=== PATIENT | female | born 1930 | race Caucasian/White ===

== ENCOUNTER 2017-07-17 11:02 | Emergency (ER) | payer MEDICARE, OTHER ==
[~2017-07-17] VITALS: Ht 160 cm; Wt 65.5 kg
[~2017-07-17 11:02] MED LIST: ASPI-973 PO; CALC500T PO; CLON0.1T PO; DOCU-41 PO; HYDR25TA4 PO; LIDO700A10 TP; LOPE1LIQ9 PO; LORA0.5T PO; MORP15TA PO; PANT40TA3 PO; PSYL1PAC10 PO
[2017-07-17 11:05] VITALS: BP 215/108; PULSE 83; RESP 18; O2SAT 98
--- NOTE | 2017-07-17 11:46 | ED.REPORT ---
HPI-General Illness Date of Service Jul 17, 2017 ED Provider: Hemal Winn MD Pt is an 87 year old female with a history of HTN, A-fib, and chronic UTI who presents to the ED for elevated blood pressure onset prior to arrival. The pt reports that she was referred to the ED by Dr. Roth, master planner, for her elevated blood pressure. She c/o dizziness and headache (new). She denies chest pain, SOB, nausea, vision change, lower extremity swelling, and vomiting. Pt reports intermittent sharp chest pain, but she denies current chest-related symptoms. The pt took Lorazepam at 10:00 today without relief. She states that she went to see her , who stays at a jail, resulting in her stress due to his change in mental status. Nursing Notes Stated Complaint: POSSIBLE ELEVATED BLOOD PRESSURE/SENT BY Chief Complaint: Dysrhythmia/Cardiac Nursing Notes Reviewed: Yes Allergies: Coded Allergies: duloxetine (Verified Allergy, Severe, "throat swelling", 07/17/17) felodipine (Verified Allergy, Severe, NAUSEA, 07/17/17) influenza virus vaccine, specific (Verified Allergy, Severe, "guillone barre", 07/17/17) lisinopril (Verified Allergy, Severe, angioedema, 07/17/17) ropinirole (Verified Allergy, Severe, "memory problems, visual hallucinations", 07/17/17) temazepam (Verified Allergy, Severe, "memory problems", 07/17/17) nitrofurantoin (Verified Allergy, Intermediate, "nausea", 07/17/17) Sulfa (Sulfonamide Antibiotics) (Verified Allergy, Unknown, 07/17/17) amlodipine besylate (Verified Adverse Reaction, Severe, Nausea, 07/17/17) norvasc caused nausea and "throat burning" cefuroxime (Unverified Adverse Reaction, Unknown, Diarrhea, 07/17/17) Scheduled Aspirin (Aspirin) 81 Mg Tablet.dr 81 MG PO DAILY Calcium Gluconate (Calcium Gluconate) 45 Mg Tablet 45 MG PO DAILY Clonidine (Clonidine) 0.1 Mg Tablet 0.2 MG PO TID Hydrochlorothiazide (Hydrochlorothiazide) 25 Mg Tablet 25 MG PO DAILY Lidocaine (Lidoderm) 700 Mg Adh..patch 1 PATCH TP UD Pantoprazole DR (Pantoprazole DR) 40 Mg Tablet.dr 40 MG PO DAILY Scheduled PRN Docusate Sodium (Colace) 100 Mg Capsule 50 MG PO DAILY PRN PRN For Constipation Lorazepam (Lorazepam) 0.5 Mg Tablet 0.25-0.5 MG PO TID PRN PRN For Anxiety Morphine Sulfate (Morphine Sulfate) 15 Mg Tablet 7.5-15 MG PO Q3-4H PRN PRN For Pain Miscellaneous Medications Loperamide Liquid (Imodium A-D Liquid) 1 Mg/7.5 Ml Liquid 1 MG PO Psyllium Seed (with Sugar) (Metamucil Packet) 1 Each Packet 1 EACH PO General Time Seen by MD: 11:46 Chief Complaint Other (Elevated blood pressure) Hx Obtained From: Patient Arrived By: Walk-in Sudden in Onset?: No Onset Occurred: Just prior to arrival Symptom Duration: Since onset Severity: Current: No pain currently Severity: Maximum: No pain Recent Healthcare: Recent doctor visit Similar Sx Previous: Yes Past Medical History Past Medical History Notes: PCP - Dr. Julee Alarcon Past Medical History Cataracts Diverticulitis Reports: Hypertension Reports: Atrial fibrillation, Depression, Urinary tract infection (chronic) Past Surgical History Right ankle Reports: Appendectomy, Cataract surgery Smoking History Former Smoker Social History Her lives in a separate Retirement, and he is demented. Alcohol Use: "Social" Drug Use: Denies drug use Other Social History: Good social support, , Lives in jail Ambulatory Status Independent Review of Systems + elevated blood pressure Full Review of Systems Respiratory: Denies: Shortness of breath Cardiovascular: Denies: Chest pain GI: Denies: Nausea, Vomiting Neurologic: Reports: Dizziness, Headache, Denies: Vision change Complete sys rev & neg: except as marked. Physical Exam Vital Signs Vital Signs Date Time Temp Pulse Resp B/P Pulse Ox O2 Delivery O2 Flow Rate FiO2 07/17/17 11:05 36.8 83 18 215/108 98 Room Air Initial VS: Reviewed Head / Eyes: Atraumatic, Normocephalic Neck: Supple, Full range of motion Respiratory: Breath sounds normal, Clear to auscultation, No respiratory distress Abdomen / GI: Soft, Non-tender Extremities: Vascular intact, Neuro intact Skin: Warm, Dry, No cyanosis Neurologic: Alert, Oriented, Nonfocal Psychiatric: Mood/affect normal, Behavior normal General/Constitutional: Awake, Alert Cardiovascular: Heart rate NL, Regular rhythm, Heart sounds NL Re-Eval/Medical Decision Med Decision/Clinical Course The blood pressure in the room when I checked it was 220/90. She has a mild headache but otherwise is asymptomatic and has a normal exam. I talked to Dr. Alarcon who suggested hydrochlorothiazide as an additional medication but the patient is reluctant to use this given her severe incontinence problem. We will use atenolol 25mg daily and follow up next week. Source of Hx: Old records Time of Eval: 12:02 Re-Evaluation/Progress Note: Informed pt of plan to speak with her PCP. All questions addressed. Time of Eval: 12:10 Re-Evaluation/Progress Note: Pt rechecked. Informed pt of plan for discharge. Pt understands and agrees with plan for discharge. F/U instructions and RTER warnings given. All questions addressed. Consultation : Referral / Consult Name: Mirtha Alarcon MD Consulted With: Primary care physician Call Returned at: 12:04 Rocket Engine Tester: Agrees with eval, Agrees with plan Note: Consulted with pt's PCP. Discussed pt's case. Recommends f/u in 1 week and adding HCTZ. Counseled Regarding: Diagnosis, Need for follow-up, When/why to return to ED Discharge & Departure Primary Impression: Hypertension Hypertension type: essential hypertension Qualified Code: I10 - Essential ( primary) hypertension Disposition: Home Discharge Condition All VS Reviewed: Yes Condition: Stable Patient Instructions: Hypertension in the Older Adult (ED) Additional Instructions: Take all your regular medication. Add on atenolol 25 mg daily. Call your primary care provider today for a follow up appointment in a week. Return to the Emergency Department for any new or concerning symptoms such as severe unrelenting headache, vision disturbance, weakness numbness or tingling, or chest pain that lasts for more than 10 minutes. Referrals: Mirtha Alarcon MD Attestation Portions of this note were transcribed by Bita Reeder. I, Dr. Winn personally performed the history, physical exam and medical decision-making; I reviewed and confirmed the accuracy of the information in the transcribed note. Signed by: Katina Ruiz, 07/17/17. copies to: Mirtha Alarcon MD, Kirk H MD Jul 17, 2017 11:46 Bita Kessler Jul 17, 2017 11:54
[2017-07-17] MEDS ORDERED: ATEN25TA PO (12:20)
[2017-07-17 13:14] VITALS: BP 191/67; PULSE 66; RESP 16; O2SAT 98
== END 2017-07-17 13:15 | disposition home or self-care (01) ==
LOC: SED 11:02
DX: I10 Essential (primary) hypertension (principal); I48.91 Unspecified atrial fibrillation; Z87.891 Personal history of nicotine dependence; Z79.82 Long term (current) use of aspirin; Z88.1 Allergy status to other antibiotic agents; Z88.2 Allergy status to sulfonamides; Z88.8 Allergy status to other drugs, medicaments and biological substances
CPT/HCPCS: 11721; 99283; G0463